=== PATIENT | female | born 1950 | race Two or more races ===

== ENCOUNTER 2016-09-23 00:25 | Emergency (ER) | payer OTHER, MEDICAID ==
[~2016-09-23] VITALS: Ht 149.9 cm; Wt 63.5 kg
[~2016-09-23 00:25] MED LIST: BUDE160A3 INH; CAR3125T PO; DOC100C PO; FENO5TAB PO; FER325T PO; FUR40T PO; GABA300C8 PO; INSLANTI SC; LIS5T PO; NOR10T PO; ONDA8TAB6 PO; PREG100C PO; SIMV-8 PO
[2016-09-23] MEDS ORDERED: DEXTROSE (50%) 50ML SYRG IV ONE ×3 (01:00→01:30)
[2016-09-23 01:12] LABS: Basophils # (auto) 0 uL; Basophils % (auto) 0.4 % (0.0-2.0); Eosinophils # (auto) 0 uL; Eosinophils % (auto) 0.3 % (0.0-7.0); Hematocrit 34.3 % (36.0-46.0); Hemoglobin 11.4 g/dL (12.2-16.2); Lymphocytes # (auto) 1.5 uL; Lymphocytes % (auto) 27.1 % (10.0-50.0); Mean Corpuscular Hemoglobin 29.8 pg (28.0-32.0); Mean Corpuscular Hgb Conc. 33.2 g/dL (32.0-36.0); Mean Corpuscular Volume 89.6 fL (80.0-100.0); Mean Platelet Volume 8.8 fL (7.4-10.4); Monocytes # (auto) 0.5 uL; Monocytes % (auto) 9.1 % (0.0-12.0); Neutrophils # (auto) 3.5 uL; Neutrophils % (auto) 63.1 % (37.0-80.0); Platelet Count (auto) 252 10^3/uL (140-450); Red Cell Distribution Width 16.1 % (11.6-16.0); White Blood Cell 5.5 10^3/uL (4.4-10.8)
[2016-09-23] MEDS ORDERED: ACCU-CHEK COMFORT CURVE STRIP VI ONE ×2 (01:15→01:30)
[2016-09-23 01:23] LABS: Albumin 3.1 g/dL (3.4-5.0); BUN/Creatinine Ratio 17.2; Calcium 8.3 mg/dL (8.5-10.1); Magnesium 2.7 mg/dL (1.6-2.6); Potassium 3.7 mmol/L (3.5-5.1)
[2016-09-23 01:26] LABS: Bilirubin, Total 0.3 mg/dL (0.2-1.0); Total Protein 7.9 g/dL (6.4-8.2)
[2016-09-23 01:43] LABS: B-Type Natriuretic Peptide 30.8 pg/mL (0-100); Temperature: 21.4 C (20.0-25.0)
[2016-09-23 04:47] VITALS: BP 83/53
== END 2016-09-23 05:53 | disposition home or self-care (01) ==
LOC: EDBD 00:25 → ER 00:25
DX: E11.649 Type 2 diabetes mellitus with hypoglycemia without coma (principal); T38.3X5A Adverse effect of insulin and oral hypoglycemic [antidiabetic] drugs, initial encounter; M19.90 Unspecified osteoarthritis, unspecified site; I13.0 Hypertensive heart and chronic kidney disease with heart failure and stage 1 through stage 4 chronic kidney disease, or unspecified chronic kidney disease; N18.9 Chronic kidney disease, unspecified; I50.9 Heart failure, unspecified; E78.5 Hyperlipidemia, unspecified; Z88.0 Allergy status to penicillin; Z88.2 Allergy status to sulfonamides; Z79.4 Long term (current) use of insulin; X58.XXXA Exposure to other specified factors, initial encounter; Y93.89 Activity, other specified; Y99.8 Other external cause status; Y92.89 Other specified places as the place of occurrence of the external cause
CPT/HCPCS: 36415; 71010; 80053; 82962; 83735; 83880; 85025; 93005; 96374; 99285; J7042